=== PATIENT | male | born 1960 ===

== ENCOUNTER 2017-04-14 14:03 | Observation (INO) | payer OTHER, MEDICAID, SELFPAY | END 2017-04-16 15:18 | disposition home or self-care (01) | LOC: ED 08-01 08:54 → AC 08-01 09:09 | PROVIDERS: Admitting Provider Internal Medicine; Emergency Provider Emergency Medicine; Visit Provider Internal Medicine | DX: T25.231A Burn of second degree of right toe(s) (nail), initial encounter (principal); E11.22 Type 2 diabetes mellitus with diabetic chronic kidney disease; E11.40 Type 2 diabetes mellitus with diabetic neuropathy, unspecified; I10 Essential (primary) hypertension; I50.9 Heart failure, unspecified; I73.9 Peripheral vascular disease, unspecified; Z79.4 Long term (current) use of insulin; N18.6 End stage renal disease; F17.210 Nicotine dependence, cigarettes, uncomplicated | CPT/HCPCS: 36415; 73630; 80048; 80053; 81001; 82962; 83605; 84145; 85025; 85651; 87040; 87070; 87075; 87205; 96365; 99058; 99284; 99406; G0378; J0295; J0360; J1650; J1956 ==